=== PATIENT | male | born 1985 | race African-American/Black ===

== ENCOUNTER 2021-07-28 19:50 | Emergency (ER) | payer OTHER ==
[~2021-07-28] VITALS: Ht 182.9 cm; Wt 136.1 kg
--- NOTE | 2021-07-28 20:00 | NUR ---
Dr. Martinez at bedside for MSE.
[2021-07-28] MEDS ORDERED: TDAP DIPH,PERTUSS,TET VAC/PF 0.5 ML DISP.SYRIN IM ONE ×2 (20:12→20:15)
[2021-07-28] MEDS ORDERED: LIDOCAINE HCL 1% 20 ML VIAL TP ONE (20:15)
[2021-07-28] MEDS ORDERED: IBUP-1955 PO (20:37)
--- NOTE | 2021-07-28 20:40 | NUR ---
Patient discharged to home in stable condition. Written and verbal after care instructions given. Patient verbalizes understanding of instructions. Stressed follow up or return to ER for worsening s/s. Patient out of ER with steady gait, no acute signs of distress, VSS, all belongings taken.
[2021-07-28 20:41] VITALS: BP 129/78
== END 2021-07-28 20:41 | disposition home or self-care (01) ==
LOC: ER 20:08
DX: S61.512A Laceration without foreign body of left wrist, initial encounter (principal); W26.0XXA Contact with knife, initial encounter; Y93.G1 Activity, food preparation and clean up; Y92.89 Other specified places as the place of occurrence of the external cause
CPT/HCPCS: 12002; 90471; 90715; 99283; J3490; A4217; A4663

== ENCOUNTER 2021-09-14 00:34 | Inpatient (IN) | payer OTHER ==
[~2021-09-14] VITALS: Ht 185.4 cm; Wt 136.1 kg
[~2021-09-14 00:34] MED LIST: IBUP-1955 PO
[2021-09-14] MEDS ORDERED: PANTOPRAZOLE SODIUM 40 MG TABLET.DR PO ONE ×2 (01:00→01:22)
[2021-09-14] MEDS ORDERED: MAG HYDROX/AL HYDROX/SIMETH 30 ML LIQUID UDC PO ONE (01:00)
[2021-09-14] MEDS ORDERED: LIDOCAINE VISCUS 2% 15 ML UDC MM ONE (01:00)
[2021-09-14 01:17] LABS: HEMATOCRIT 42.9 % (36.7-47.1); MEAN CORPUSCULAR HEMOGLOBIN 27.7 uug (23.8-33.4); PLATELET COUNT (AUTO) 300 K/uL (152-348)
[2021-09-14] MEDS ORDERED: MAG HYDROX/AL HYDROX/SIMETH 30 ML LIQUID UDC ONE (01:21)
[2021-09-14] MEDS ORDERED: LIDOCAINE VISCUS 2% 15 ML UDC ONE (01:21)
[2021-09-14 01:23] LABS: POTASSIUM 4.1 mmol/L (3.5-5.1)
[2021-09-14 01:25] LABS: *BILIRUBIN,URIN NEGATIVE (NEGATIVE); *BLOOD, URINE NEGATIVE (NEGATIVE); *CLARITY,URINE CLEAR (CLEAR); *COLOR,URINE YELLOW (YELLOW); *KETONES,URINE NEGATIVE (NEGATIVE); *UROBILINOGEN,URINE 0.2 E.U./dl (NORMAL); LEUKOCYTE ESTERASE ,URINE NEGATIVE (NEGATIVE); NITRITE, URINE NEGATIVE (NEGATIVE); UGLUCOSE NEGATIVE (NEGATIVE)
[2021-09-14 01:29] LABS: BILIRUBIN,DIRECT 0.1 mg/dL (0.0-0.2); BILIRUBIN,TOTAL 0.2 mg/dL (0.2-1.0); TOTAL PROTEIN, SERUM 7.3 g/dL (6.4-8.2)
[2021-09-14] MEDS ORDERED: NITROGLYCERIN 0.4 MG/TAB BOTTLE SL ONE ×2 (06:00)
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
--- NOTE | 2021-09-14 07:00 | NUR ---
Maria Elena pt 35yrs male awake and alerty respiration spont and easy c/o came and ky burks for admition
--- NOTE | 2021-09-14 07:20 | NUR ---
Called the medical center for panel call, blaise hector was paged.
--- NOTE | 2021-09-14 09:00 | NUR ---
valeriy optend eat will no chest pain wating for room
[2021-09-14] MEDS ORDERED: Z GUARD REMEDY PASTE 57 GM TUBE TOP PRN (11:15)
[2021-09-14] MEDS ORDERED: MAGNESIUM HYDROXIDE 30 ML LIQUID UDC PO PRN (11:15)
[2021-09-14] MEDS ORDERED: ONDANSETRON 4 MG/2 ML VIAL IV PRN (11:15)
[2021-09-14] MEDS ORDERED: ASPIRIN 81 MG TAB.CHEW PO SCH (11:15)
[2021-09-14] MEDS ORDERED: ACETAMINOPHEN 325 MG TABLET PO PRN (11:15)
[2021-09-14] MEDS: HYDROCHLOROTHIAZIDE 25 MG TABLET PO SCH ×2 (11:30→11:55)
--- NOTE | 2021-09-14 11:30 | NUR ---
hospital[facility] she here see and examine pt spook with pt about plan of care pt verblized understood dineses chest pain or sob
[2021-09-14] MEDS ORDERED: hydrALAZINE HCL 25 MG TABLET ONE (11:36)
[2021-09-14] MEDS ORDERED: ASPIRIN 81 MG TAB.CHEW ONE (11:36)
--- NOTE | 2021-09-14 12:30 | NUR ---
Lunch obtended eat will no chest pain noted at bed side visting pt awating for moniter bed
--- NOTE | 2021-09-14 14:10 | NUR ---
ecchocardio gram done at bed side tolorated procedur
--- NOTE | 2021-09-14 16:00 | NUR ---
resting and asleepy looks comfortable no chest pain
--- NOTE | 2021-09-14 17:07 | NUR ---
wating for moniter bed
--- NOTE | 2021-09-14 18:00 | NUR ---
[facility]AL[facility] ( [facility] ) called awre pt condition lab lab resulet order troponin if oK to d/c home and RX sent to pt own phrmacey blood drow by lab tach done
[2021-09-14] MEDS ORDERED: LISI1TAB32 PO (18:08)
[2021-09-14] MEDS ORDERED: ATOR40TA PO (18:08)
[2021-09-14] MEDS ORDERED: ASPI81TA31 PO (18:08)
--- NOTE | 2021-09-14 19:15 | NUR ---
HAND OFF TO ALIX MENDOZA
--- NOTE | 2021-09-14 20:31 | NUR ---
[facility] CALLED BACK MADE PATIENT AWARE OF TEST RESULTS. OK TO DC HOME
--- NOTE | 2021-09-14 20:45 | NUR ---
STEPHANIE MILLER CALLED BACK OK TO [place].
[2021-09-14] MEDS ORDERED: ATORVASTATIN 10 MG TABLET PO SCH (21:00)
[2021-09-14] MEDS ORDERED: ATORVASTATIN 40 MG TABLET PO SCH (21:00)
[2021-09-14] MEDS ORDERED: LISI20TA30 PO (21:25)
--- NOTE | 2021-09-14 21:25 | NUR ---
DR BOX SPOKE WITH PATIENT WILL PR HOME.
--- NOTE | 2021-09-14 21:32 | NUR ---
Patient discharged to home in stable condition. Written and verbal after care instructions given. Patient verbalizes understanding of instructions. Stressed follow up or return to ER for worsening s/s.
[2021-09-14 21:34] VITALS: BP 111/73
[2021-09-15] MEDS ORDERED: LISINOPRIL 10 MG TABLET PO SCH (09:00)
== END 2021-09-14 21:32 | disposition home or self-care (01) | DRG 305 ==
LOC: ER 00:35 → TRANSITION 11:41
PROVIDERS: ADMIT Nurse Practitioner Acute Care; ATTEND Nurse Practitioner Acute Care
DX: I16.0 Hypertensive urgency (principal); D68.59 Other primary thrombophilia; I25.10 Atherosclerotic heart disease of native coronary artery without angina pectoris; E66.01 Morbid (severe) obesity due to excess calories; E78.5 Hyperlipidemia, unspecified; I10 Essential (primary) hypertension; Z79.82 Long term (current) use of aspirin; Z91.14 Patient's other noncompliance with medication regimen; Z68.39 Body mass index [BMI] 39.0-39.9, adult; Z20.822 Contact with and (suspected) exposure to COVID-19
CPT/HCPCS: 36415; 70030-TC; 71045; 83690; 85025; 85730; 93005; 93307; A4663; G0378